=== PATIENT | female | born 1970 | race Caucasian/White ===

== ENCOUNTER → 2021-11-05 10:48 | Outpatient (CLI) | payer OTHER, SELFPAY ==
--- NOTE | ~2021-11-05 | US_ITS ---
EXAMINATION: US pelvic complete DATE: 11/05/2021 11:10 INDICATION: Postmenopausal bleeding Comparison:No prior studies for comparison. TECHNIQUE: Multiple transabdominal and endovaginal sonographic images of the pelvis performed. FINDINGS: The uterus measures 9.3 x 4.3 x 6 cm. There is a mass in the uterus with heterogeneous echo texture measuring 5.2 x 4.6 x 4.1 cm, consistent with a fibroid. The endometrial complex measures 6 m m. The ovaries are not visualized. There is no free fluid in the pelvis. There are no abnormal masses seen on either side. IMPRESSION: 1. Thickened endomtrial complex. The differential diagnosis includes endometrial hyperplasia, polyp a nd carcinoma. Biopsy is recommended. 2: Uterine fibroid measuring 5.2 cm. Reviewed, dictated and finalized at location B. IMPRESSION: 1. Thickened endomtrial complex. The differential diagnosis includes endometria l hyperplasia, polyp and carcinoma. Biopsy is recommended. 2: Uterine fibroid measuring 5.2 cm.
== END ==
PROVIDERS: PCP Obstetrics & Gynecology Gynecology; Visit Provider Obstetrics & Gynecology Gynecology
DX: N95.0 Postmenopausal bleeding (principal); D25.9 Leiomyoma of uterus, unspecified
CPT/HCPCS: 76856

== ENCOUNTER 2021-12-07 02:59 | Day surgery (SDC) | payer OTHER, SELFPAY ==
[2021-11-30 16:57] VITALS: BMI 23.1
--- NOTE | 2021-11-30 17:04 | PC.NURSE ---
Report to the Outpatient Waiting Room, entrance under the green pavilion located off [facility], at time 1130 on date 12/07/21. Planned Procedure Time: 1330. Time changes happen often and if your time is changed the preop area will call you the afternoon before. - You and your visitor will be asked to self-screen and do not enter if you have any COVID symptoms. - We encourage only one visitor and NO visitors under age 16 are allowed at this time. Your visitor will receive communication by the phone number that is given day of service. - The patient visitor is requested to social distance or may leave the building when not with patient due to restrictions. - A mask is required within the hospital. Patients may have clear liquids (water, carbonated beverages, clear teas, apple juice) until 3 hours prior to surgery with a maximum of 20 ounces. 1030 - No food from midnight until time of surgery - Infants may have breast milk until 4 hours before surgery, formula 6 hours prior to surgery. - Children will be allowed to drink immediately following surgery. If applicable, please bring a bottle or sippy cup to assist with drinking. Juice, water, soda, and popsicles are readily available. For infants on formula, please bring formula the day of surgery. Pacifiers are allowed. Take the following medications with a SIP of water the morning of surgery:n/a Medications to discontinue per physician n/a Date to take last dose n/a Please no make-up, nail niuean, hairspray, perfume, deodorant, or body powder the day of surgery. No jewelry (including any body piercings) or valuables the day of surgery, leave them at home. Please take a shower or bath the night before, or the morning of, surgery with an antibacterial soap. Wear comfortable, loose fitting clothing. Children are encouraged to wear pajamas. - Jewelry must be removed prior to entering the operating room. Rings and piercings that are not removed may be cut off. - The hospital will not accept responsibility for valuables. - Please leave all valuables, including medications, at home the day of surgery. If you are going home after surgery, a licensed charter coach driver must drive you home. - NO public transportation without another adult. - We recommend that an adult stay with you for 24 hours following discharge. - We also recommend that you do not drive, make important decision, drink alcoholic beverages, or take any drugs that were not prescribed by your health care provider for at least 24 hours after your discharge time. For Pediatric surgeries, we recommend two adults accompany the child home. Follow any additional instructions given to you from your surgeon. If you or anyone in your household have experienced Covid symptoms in the past week, please notify your surgeon or the nurse liaison at the phone number below for possible testing. Telephone instructions given to Kyra Barboza and asked if any additional questions and then verbalized understanding. Patient advised to call surgeon office or pre surgery nurse liaison [phone] if any additional questions.
--- NOTE | 2021-12-07 10:25 | WPDHPUPDATE1 ---
History and Physical Update Update Date/Time: 12/07/21 10:25 History and Physical has been reviewed, including an updated exam of the patient. There are NO changes in the patient's condition. Risks, benefits, and alternatives have been discussed and questions answered. Patient agrees to proceed with procedure.
--- NOTE | 2021-12-07 10:25 | PM.HPGS ---
History of Present Illness History of Present Illness Consent: Risks, benefits, and alternatives have been discussed and questions answered. Patient agrees to proceed with procedure. Chief complaint: post menopausal bleeding, CIN1 Narrative: Kyra Barboza is a 51 year old female with postmenopausal bleeding and thickened endometrium measuring 6mm. In addition the patient has had abnormal Pap smear with endocervical curettings showing mild dysplasia with an otherwise normal colposcopy. Was recommended to proceed with D&C hysteroscopy to evaluate bleeding. The risks of infection, bleeding, and perforation or reviewed. Possible pathology was discussed. The patient has a current Pap reading atypical squamous cells of undetermined significance with positive HPV, colposcopy is normal, and endocervical curettings show mild dysplasia. The plan is to proceed with LEEP conization with top-hat. Risks of recurrence, infection, bleeding, and persistent disease are reviewed. Patient again voices understanding and agrees to proceed. Review of Systems Review of Systems: not repeated day of surgery; patient states no changes in status PMFSH Past Medical History Medical History (Updated 12/07/21 @ 10:48 by Velia Yepez MD) (normal spontaneous vaginal delivery) x3 Surgical History Surgical History (Updated 01/29/20 @ 09:58 by Jess Dexter) History of blepharoplasty Family History Family History (Updated 12/07/21 @ 10:46 by Velia Yepez MD) Other Adopted Social History Social History Smoking status: Never smoker Second hand tobacco smoke exposure: Yes (both parents smokes as a child) Alcohol intake: current Alcohol use details: 2-3 drinks/month Substance use: never Living arrangements: with family Spiritual care concerns: No Meds Home Medications and Allergies Home Medications Medication Instructions Recorded Confirmed Type No Home Medications 01/29/20 01/29/20 History Allergies Allergy/AdvReac Type Severity Reaction Status Date / Time No Known Allergies Allergy Mild Verified 11/30/21 16:56 Exam Const: General: healthy appearing and alert Orientation/consciousness: patient oriented x3 Resp: Effort & Inspection: normal respiratory effort GI: GI Palp: Yes Soft to palpation, No Tenderness to palpation present (GI) and No Palpable mass present : External Female Exam: normal external appearance Speculum Exam - Vagina: normal appearance of the vagina and normal vaginal discharge Speculum Exam - Cervix: normal appearance of the cervix Bimanual exam- vagina & uterus: uterine size normal and consistency normal Bimanual Exam- Adnexa, other: normal adnexae and No adnexal tenderness Neuro: General: patient oriented x3 Assessment and Plan Assessment and plan (1) Post-menopausal bleeding: Code(s): N95.0 - Postmenopausal bleeding Status: Acute Assessment and Plan: plan to proceed with D&C hysteroscopy (2) Mild dysplasia of cervix (LIZABETH I): Code(s): N87.0 - Mild cervical dysplasia Status: Acute Assessment and Plan: plan to proceed with LEEP conization in top-hat due to positive ECC
[2021-12-07 11:16] VITALS: BP 119/82; PULSE 78; RESP 18; TEMP 37.4; O2SAT 100
[2021-12-07] MEDS: LACTATED RINGERS 1,000 ML 30 ML IV CONT ×2 (11:51→14:41)
[2021-12-07] MEDS: MIDAZOLAM HCL (*CRX) 2 MG/2 ML VIAL IV PUSH (12:04)
[2021-12-07] MEDS: ACETAMINOPHEN 500 MG TABLET 1000 MG PO (12:13)
--- NOTE | 2021-12-07 12:56 | WPDANESEPPF ---
Anes - Initial Pre Proc Eval Procedure: Operation Date: 12/07/21 13:30 Proposed Procedures p Hysteroscopy, Dilation and Curettage - Velia Yepez MD s Loop Electrical Excision Procedure - Velia Yepez MD Date/Time: 12/07/21 12:56 Surgeon: Velia Yepez MD Pre Op Diagnosis: post menopausal bleeding, CIN1 Patient Data Age: 51 Gender: F Height: 1.63 m Weight: 62.6 kg Last Vital Signs Temp 37.4 C 12/07/21 11:16 Pulse 78 12/07/21 11:16 Resp 18 12/07/21 11:16 BP 119/82 12/07/21 11:16 Pulse Ox 100 12/07/21 11:16 O2 Del Method Room Air 12/07/21 11:16 Allergies Allergy/AdvReac Type Severity Reaction Status Date / Time No Known Allergies Allergy Mild Verified 12/07/21 11:46 Home Medications Medication Instructions Recorded Confirmed Type No Home Medications 01/29/20 12/07/21 History Patient hx anesthesia problems: none Family hx anesthesia problems: none Results Review: All pre-operative results and documents have been reviewed as part of the pre-operative evaluation. [facility] Past Medical History Medical History Anxiety Surgical History Surgical History History of blepharoplasty Family History Family History Other Adopted Social History Social History Smoking status: Never smoker Second hand tobacco smoke exposure: Yes (both parents smokes as a child) Alcohol intake: current Alcohol use details: 2-3 drinks/month Substance use: never Living arrangements: with family Spiritual care concerns: No Anes - Eval Final PreProcedure Day of Procedure 12/07/21 12:56 Patient weight: normal Heart: regular rate and rhythm Lungs: clear to auscultation Airway: Mallampati scale class II Neurological: alert and oriented Last oral intake: >/= 8 hours ASA classification: II Emergent: no Anesthetic plan: proceed Anesthesia type and monitoring: general GIVS and standard monitoring Results Review: All pre-operative results and documents have been reviewed as part of the pre-operative evaluation. Informed Consent: The patient's anesthetic plan and its attendant risks and benefits were discussed with the patient/family/POA. Questions were solicited and answers provided to the satisfaction of the patient/family/POA.
[2021-12-07] MEDS: LIDO 2%/EPINEPHRINE 1:100,000 50 ML VIAL 10 ML INFILTRATE (14:19)
--- NOTE | 2021-12-07 14:31 | P.OP_ITS ---
Procedure Note - Detailed Date of Procedure 12/07/21 Pre-op Diagnosis post menopausal bleeding, CIN1 Post-op Diagnosis Same Procedure Performed D&C hysteroscopy with MyoSure resection of uterine mass; LEEP conization with top-hat Surgeon Velia Yepez MD Anesthesia MAC and Local Findings uterus sounds to 8cm; there is a large anterior mass most consistent with a fibroid based on resection characteristics; remainder of the endometrium appears grossly normal Description of Procedure The patient is taken to the operating room and placed under anesthesia in the dorsal lithotomy position. A coated bivalve speculum was placed in the vagina and the cervix grasped on the anterior lip with a tenaculum. The cervix is injected in each quadrant with 1% lidocaine with epinephrine. The uterus is sounded to 8cm. The cervix is dilated to a 5 Hegar. The diagnostic hysteroscope was placed with the above-stated findings. The Aveeta resection blade is placed and under direct visualization the uterine mass was removed in its entirety. The blade and hysteroscope are removed. The small curette is used to curette the endometrium until good uterine cry was in all areas. Minimal material was obtained consistent with the visual appearance. The tenac ulum is then removed. The 2 by 1cm loop is used to perform the LEEP conization. The loop stalled approximately [address] was pulled out. The right loop is marked at 3 with the split. A 2nd pass starting on the left performed and marked at 3 with the split. A 1x1cm loop was then used for top-hat single pass marked at 3 with split. Monsel's solution was applied to the cone bed. Good hemostasis is noted. All instruments are removed. Estimated Blood Loss 5 Drains No Packing No Pathology Yes ( Endometrial shavings and curettings; LEEP left marked at 9, right marked at 3, top-hat marked at 3) Complications No immediate complications Condition Stable Disposition PACU
[2021-12-07 14:41] VITALS: BP 112/75; PULSE 83; RESP 16; O2SAT 100
[2021-12-07 15:10] VITALS: BP 120/76; PULSE 85; RESP 16; O2SAT 100
[2021-12-07 15:35] VITALS: BP 111/66; PULSE 86; RESP 16
[2021-12-07] MEDS: oxyCODONE HCL (*CRX) 5 MG TAB IR PO (15:36)
== END 2021-12-07 15:50 | disposition home or self-care (01) ==
PROVIDERS: PCP Physician Assistant; Visit Provider Obstetrics & Gynecology Gynecology
PROC: 0U5B8ZZ Destruction of Endometrium, Via Natural or Artificial Opening Endoscopic (ICD-10-PCS; CPT 58563; principal; 2021-12-07 13:30)
PROC: 0UBC7ZZ Excision of Cervix, Via Natural or Artificial Opening (ICD-10-PCS; CPT 57522; 2021-12-07 13:30)
DX: N95.0 Postmenopausal bleeding (principal); N87.0 Mild cervical dysplasia
CPT/HCPCS: 57522; 88305; 88307; 88342; A9270; J1885; J2250; J2704; J3010; J7120